=== PATIENT | male | born 1950 | race Caucasian/White ===

== ENCOUNTER → 2020-02-03 | Outpatient (CLI) | payer OTHER ==
--- NOTE | 2020-02-03 17:30 | XR ---
EXAMINATION TYPE: XR chest 2V DATE OF EXAM: 02/03/2020 COMPARISON: 08/31/2009 HISTORY: Chest pain. Fell down. TECHNIQUE: FINDINGS: Heart and mediastinum are normal. Lungs are clear. There is no pleural effusion or pneumoth orax. IMPRESSION: Normal chest. No change.
--- NOTE | 2020-02-03 17:31 | XR ---
EXAMINATION TYPE: XR ribs RT DATE OF EXAM: 02/03/2020 COMPARISON: NONE HISTORY: Pain TECHNIQUE: 4 views FINDINGS: I see no evidence of a rib fracture. The costophrenic angle is clear. There is no sign of a pneumothorax. IMPRESSION: Negative right rib exam.
== END | disposition home or self-care (01) ==
LOC: RADXRMAIN 16:52
PROVIDERS: ATTEND Emergency Medicine
DX: S20.211A Contusion of right front wall of thorax, initial encounter (principal)
CPT/HCPCS: 71046